=== PATIENT | female | born 1985 | race American Indian/Alaskan Native ===

== ENCOUNTER 2021-12-18 10:16 | Outpatient (CLI) | payer OTHER ==
[2021-12-18 10:42] VITALS: BP 111/71
--- NOTE | 2021-12-18 11:53 | Ultrasound Report ---
Obstetrical ultrasound limited INDICATION: 36-year-old female with possible TECHNIQUE: Real-time grayscale and Doppler imaging of the pelvis FINDINGS: No intrauterine identified. Uterus measures 7.6 x 3.6 x 3.9 cm. Endometrial thick ness is 6 mm IMPRESSION: No intrauterine identified. Signer Name: Rancho Chamorro MD Signed: 12/18/2021 11:49 AM Workstation Name: [id number]
== END 2021-12-18 11:40 | disposition still patient (30) ==
LOC: TRG 10:16 → APU 10:18 → TRG 11:40
PROVIDERS: ATTEND Obstetrics & Gynecology
DX: R93.89 Abnormal findings on diagnostic imaging of other specified body structures (principal)
CPT/HCPCS: 76815; 76857

== ENCOUNTER 2021-12-18 13:24 | Emergency (ER) | payer SELFPAY ==
[2021-12-18 13:35] VITALS: BP 113/71
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
== END 2021-12-18 17:03 | disposition home or self-care (01) ==
LOC: ED 13:24
DX: F41.9 Anxiety disorder, unspecified (principal); Z59.00 Homelessness unspecified; Z88.6 Allergy status to analgesic agent; Z79.899 Other long term (current) drug therapy
CPT/HCPCS: 99283